=== PATIENT | female | born 1955 | race Caucasian/White ===

== ENCOUNTER 2016-12-29 14:08 | Inpatient (IN) | payer OTHER ==
[~2016-12-29] VITALS: Ht 167.6 cm; Wt 76.0 kg
[~2016-12-29 14:08] MED LIST: ANTIVERT12.5 MG; CLONAZEPAM0.5 MG; CYMBALTA20 M1; KEFLEX500 MG PO; KEPPRA500 MG PO; LAC PO; LISINOPRIL2.5 MG; MICROZIDE12.5 MG PO; NORCO1 TA2; PRAVACHOL20 MG; PRILOSEC20 MG; SOMA350 MG PO; SYNTHROID0.025 MG PO; TRAMADOL HCL50 MG; TRAZODONE50 M1; TRAZODONE50 M1 PO
[2016-12-29 15:15] LABS: PLATELET COUNT 341 x10^3mcL (130-400); RED CELL DISTRIBUTION WIDTH 13.4 % (11.5-14.5)
[2016-12-29 15:28] LABS: CALCIUM 8.9 mg/dL (8.5-10.1); CARBON DIOXIDE 23.2 mmol/L (21-32); CHLORIDE SERUM 108 mmol/L (98-107); CREATININE SERUM 1.2 mg/dL (0.6-1.0); GFR1 49 mL/min; GLUCOSE SERUM 152 mg/dL (74-106); POTASSIUM SERUM 3.4 mmol/L (3.5-5.1); SODIUM SERUM 143 mmol/L (136-145)
[2016-12-29 15:31] LABS: ALBUMIN 3.7 g/dL (3.4-5.0); ALKALINE PHOSPHATASE 85 U/L (46-116); ALT/SGPT 21 U/L (14-59); AST/SGOT 18 U/L (15-37); BILIRUBIN TOTAL 0.2 mg/dL (0.20-1.00); CHOLESTEROL 201 mg/dL (<200); TOTAL PROTEIN, SERUM 7.3 g/dL (6.4-8.2)
[2016-12-29] MEDS ORDERED: TOPAMAX50 M1 PO (16:06)
[2016-12-29] MEDS ORDERED: NOR5 PO (16:06)
[2016-12-29] MEDS ORDERED: SEROQUEL50 M1 PO (16:06)
[2016-12-29] MEDS ORDERED: GABAPENTIN100 M2 PO (16:06)
[2016-12-29 19:10] LABS: CHOLESTEROL/HDL RATIO 4.9
[2016-12-29 19:19] LABS: FREE T4 1.1 ng/dL (0.76-1.46); FREE THYROXINE INDEX 3.1 ug/dL (1.4-4.5); T4(THYROXINE) 9.6 ug/dL (4.7-13.3)
[2016-12-29 19:22] LABS: T3 TOTAL 1.12 ng/mL
[2016-12-29 19:51] VITALS: BP 97/59
[2016-12-29] MEDS ORDERED: SYNTHROID0.1 MG PO (21:02)
[2016-12-29] MEDS ORDERED: CYMBALTA60 M1 PO (21:02)
[2016-12-29] MEDS ORDERED: CELEXA20 MG PO (21:03)
[2016-12-29 21:55] VITALS: BP 131/62
[2016-12-30 06:28] LABS: BASOPHIL % 0.6 % (0-2); PLATELET COUNT 276 x10^3mcL (130-400); RED CELL DISTRIBUTION WIDTH 13.8 % (11.5-14.5)
[2016-12-30 06:29] LABS: CREATININE SERUM 1.2 mg/dL (0.6-1.0); PHOSPHOROUS 4.3 mg/dL (2.5-4.9); POTASSIUM SERUM 3.5 mmol/L (3.5-5.1)
[2016-12-30 07:51] LABS: UA SPECIFIC GRAVITY >=1.030 (1.005-1.035); microscopic required? YES; urine erythrocyte NEGATIVE (NEGATIVE)
[2016-12-30 07:59] LABS: AMPHETAMINE QUAL UR NONE DETECTED (NEG <=1000)
[2016-12-30 09:50] VITALS: BP 84/56
[2016-12-30 13:30] VITALS: BP 126/76
[2016-12-30 17:27] VITALS: BP 91/54
[2016-12-30 21:22] VITALS: BP 94/50
[2016-12-31 05:18] VITALS: BP 101/55
[2016-12-31 06:27] LABS: BASOPHIL % 0.6 % (0-2); PLATELET COUNT 314 x10^3mcL (130-400); RED CELL DISTRIBUTION WIDTH 13.5 % (11.5-14.5)
[2016-12-31 06:41] LABS: CALCIUM 8.4 mg/dL (8.5-10.1); CARBON DIOXIDE 26.4 mmol/L (21-32); CREATININE SERUM 1.4 mg/dL (0.6-1.0); POTASSIUM SERUM 4.1 mmol/L (3.5-5.1)
[2016-12-31 09:35] VITALS: BP 113/61
[2016-12-31 10:58] VITALS: Ht 167.6 cm; Wt 76.0 kg
[2016-12-31] MEDS ORDERED: THERA TABS1 TAB PO (12:36)
[2016-12-31] MEDS ORDERED: SERO100 PO (12:38)
[2016-12-31] MEDS ORDERED: LEVAQUIN750 MG PO (12:39)
[2016-12-31] MEDS ORDERED: LAC PO (12:41)
[2016-12-31] MEDS ORDERED: BACO TOP (12:57)
[2016-12-31] MEDS ORDERED: HIBICLENS118 ML TOP (12:58)
[2016-12-31 12:59] VITALS: BP 113/61
== END 2016-12-31 14:34 | disposition home or self-care (01) | DRG 177 ==
LOC: ED 14:08 → DU 18:05
PROVIDERS: Emergency Medicine; Family Medicine; ADMIT Family Medicine
DX: J69.0 Pneumonitis due to inhalation of food and vomit (principal); G93.41 Metabolic encephalopathy; N17.0 Acute kidney failure with tubular necrosis; N39.0 Urinary tract infection, site not specified; E03.9 Hypothyroidism, unspecified; K72.90 Hepatic failure, unspecified without coma; F32.9 Major depressive disorder, single episode, unspecified; I10 Essential (primary) hypertension; E87.6 Hypokalemia; G89.29 Other chronic pain; M54.2 Cervicalgia; M54.9 Dorsalgia, unspecified; R51 Headache; G40.909 Epilepsy, unspecified, not intractable, without status epilepticus; Z68.23 Body mass index [BMI] 23.0-23.9, adult; Z87.820 Personal history of traumatic brain injury; G30.9 Alzheimer's disease, unspecified; F02.80 Dementia in other diseases classified elsewhere, unspecified severity, without behavioral disturbance, psychotic disturbance, mood disturbance, and anxiety; R73.03 Prediabetes; K76.9 Liver disease, unspecified; E78.5 Hyperlipidemia, unspecified; Z82.3 Family history of stroke; E89.0 Postprocedural hypothyroidism
CPT/HCPCS: 82962; 83880; 84439; 94150; G0480; J1200; J1630; J2060; J2270; J2405; J2543; J7030; Q0092

== ENCOUNTER 2017-07-26 07:42 | Day surgery (SDC) | payer OTHER ==
[~2017-07-26] VITALS: Ht 162.6 cm; Wt 83.9 kg
[~2017-07-26 07:42] MED LIST changes: +BACO TOP; +CELEXA20 MG PO; +CYMBALTA60 M1 PO; +GABAPENTIN100 M2 PO; +HIBICLENS118 ML TOP; +LEVAQUIN750 MG PO; +NOR5 PO; +SERO100 PO; +SEROQUEL50 M1 PO; +SYNTHROID0.1 MG PO; +THERA TABS1 TAB PO; +TOPAMAX50 M1 PO
[2017-07-26 08:32] VITALS: BP 120/78
[2017-07-26 12:58] VITALS: BP 128/72
== END 2017-07-26 12:10 | disposition home or self-care (01) ==
LOC: GI 07:42 → OR 08:30 → GI 12:10
PROVIDERS: Internal Medicine
PROC: 0DBP8ZX Excision of Rectum, Via Natural or Artificial Opening Endoscopic, Diagnostic (ICD-10-PCS; principal; 2017-07-26 08:30)
DX: Z12.11 Encounter for screening for malignant neoplasm of colon (principal); K57.30 Diverticulosis of large intestine without perforation or abscess without bleeding; K62.89 Other specified diseases of anus and rectum; K64.8 Other hemorrhoids; K62.1 Rectal polyp; E66.9 Obesity, unspecified; Z68.31 Body mass index [BMI] 31.0-31.9, adult; Z86.010 Personal history of colon polyps
CPT/HCPCS: 45378; J1200; J1610; J2250; J2310; J3010; J3490

== ENCOUNTER 2017-09-26 09:11 | Emergency (ER) | payer OTHER ==
[~2017-09-26] VITALS: Ht 167.6 cm; Wt 108.9 kg
[2017-09-26 09:16] VITALS: Ht 167.6 cm; Wt 108.9 kg
[2017-09-26 11:07] LABS: BASOPHIL % 0.9 % (0-2); PLATELET COUNT 264 x10^3mcL (130-400); RED CELL DISTRIBUTION WIDTH 14.3 % (11.5-14.5)
[2017-09-26 11:14] LABS: microscopic required? NO
[2017-09-26] MEDS ORDERED: CYMBALTA30 M1 PO (11:30)
[2017-09-26] MEDS ORDERED: TRAZODONE150 M1 PO (11:30)
[2017-09-26] MEDS ORDERED: DONEPEZIL HYDRO10 M2 PO (11:30)
[2017-09-26] MEDS ORDERED: CLONAZEPAM1 MG PO (11:31)
[2017-09-26] MEDS ORDERED: SOMA350 MG PO (11:31)
[2017-09-26] MEDS ORDERED: KLOR-CON M1010 MEQ PO (11:31)
[2017-09-26] MEDS ORDERED: LASIX20 MG PO (11:31)
[2017-09-26 11:35] LABS: UA SPECIFIC GRAVITY 1.015 (1.005-1.035); urine erythrocyte NEGATIVE (NEGATIVE)
[2017-09-26 12:06] LABS: CALCIUM 9.2 mg/dL (8.5-10.1); CARBON DIOXIDE 24.8 mmol/L (21-32); CREATININE SERUM 1.6 mg/dL (0.6-1.0); POTASSIUM SERUM 3.1 mmol/L (3.5-5.1)
[2017-09-26 12:11] LABS: BILIRUBIN TOTAL 0.39 mg/dL (0.20-1.00); MAGNESIUM 1.7 mg/dL (1.8-2.4); PHOSPHOROUS 4.4 mg/dL (2.5-4.9); TOTAL PROTEIN, SERUM 7.7 g/dL (6.4-8.2)
[2017-09-26 13:25] VITALS: BP 95/50
== END 2017-09-26 13:25 | disposition home or self-care (01) ==
LOC: ED 09:11
PROVIDERS: Emergency Medicine
DX: R53.1 Weakness (principal); N28.9 Disorder of kidney and ureter, unspecified; E87.6 Hypokalemia; E83.42 Hypomagnesemia; I10 Essential (primary) hypertension
CPT/HCPCS: J7030; Q0092

== ENCOUNTER → 2018-01-15 | Outpatient (CLI) | payer OTHER ==
[~2018-01-15] MED LIST changes: +CLONAZEPAM1 MG PO; +CYMBALTA30 M1 PO; +DONEPEZIL HYDRO10 M2 PO; +KLOR-CON M1010 MEQ PO; +LASIX20 MG PO; +TRAZODONE150 M1 PO
[2018-01-15 10:51] LABS: BASOPHIL % 0.3 % (0-2); PLATELET COUNT 261 x10^3mcL (130-400); RED CELL DISTRIBUTION WIDTH 14.1 % (11.5-14.5)
[2018-01-15 11:16] LABS: BILIRUBIN TOTAL 0.4 mg/dL (0.20-1.00); CARBON DIOXIDE 25.3 mmol/L (21-32); CREATININE SERUM 1.5 mg/dL (0.6-1.0); POTASSIUM SERUM 3.9 mmol/L (3.5-5.1); TOTAL PROTEIN, SERUM 7.9 g/dL (6.4-8.2)
[2018-01-15 11:17] LABS: CHOLESTEROL/HDL RATIO 4.3
[2018-01-15 11:19] LABS: microscopic required? NO
[2018-01-15 12:25] LABS: UA SPECIFIC GRAVITY 1.025 (1.005-1.035); urine erythrocyte NEGATIVE (NEGATIVE)
== END | disposition home or self-care (01) ==
LOC: LB 10:22
PROVIDERS: Internal Medicine Nephrology
DX: N18.9 Chronic kidney disease, unspecified (principal)

== ENCOUNTER 2018-12-27 11:26 | Inpatient (IN) | payer OTHER ==
[~2018-12-27] VITALS: Ht 162.6 cm; Wt 81.8 kg
[2018-12-27 11:29] VITALS: Ht 162.6 cm; Wt 81.8 kg
[2018-12-27 12:29] LABS: PLATELET COUNT 336 x10^3mcL (130-400); RED CELL DISTRIBUTION WIDTH 11.6 % (11.5-14.5)
[2018-12-27 12:51] LABS: CALCIUM 9.6 mg/dL (8.5-10.1); CARBON DIOXIDE 22.8 mmol/L (21-32); CREATININE SERUM 1.1 mg/dL (0.6-1.0); POTASSIUM SERUM 3.8 mmol/L (3.5-5.1)
[2018-12-27 12:55] LABS: ALBUMIN 3.6 g/dL (3.4-5.0); BILIRUBIN TOTAL 0.72 mg/dL (0.20-1.00); TOTAL PROTEIN, SERUM 7.2 g/dL (6.4-8.2)
[2018-12-27 13:23] LABS: BAND NEUTROPHIL 6 % (0-10); BASOPHIL 0 % (0-2); MONOCYTE 4 % (0-7); SEGMENTED NEUTROPHILS 83 % (37-75)
[2018-12-27 13:24] LABS: rbc morphology (normal/abnorm) NORMAL (NORMAL)
[2018-12-27] MEDS ORDERED: CYMBALTA60 M1 PO (15:52)
[2018-12-27] MEDS ORDERED: LUNESTA3 MG PO (15:52)
[2018-12-27] MEDS ORDERED: TRAMADOL HCL50 MG PO (15:53)
[2018-12-27] MEDS ORDERED: NOR5 PO (15:53)
[2018-12-27] MEDS ORDERED: KEPPRA500 MG PO (15:54)
[2018-12-27] MEDS ORDERED: SYNTHROID0.1 MG PO (15:54)
[2018-12-27] MEDS ORDERED: SOMA350 MG PO (15:54)
[2018-12-27] MEDS ORDERED: TOPIRAMATE50 M1 PO (15:55)
[2018-12-27] MEDS ORDERED: CELEXA20 MG PO (15:55)
[2018-12-27] MEDS ORDERED: POTASSIUM CHLO10 MEQ PO (15:56)
[2018-12-27] MEDS ORDERED: FUROSEMIDE20 MG PO (15:56)
[2018-12-27] MEDS ORDERED: OLANZAPINE5 M2 PO (15:56)
[2018-12-27 17:05] LABS: PLATELET COUNT 232 x10^3mcL (130-400); RED CELL DISTRIBUTION WIDTH 12.8 % (11.5-14.5)
[2018-12-27 18:04] LABS: BAND NEUTROPHIL 3 % (0-10); BASOPHIL 0 % (0-2); MONOCYTE 3 % (0-7); SEGMENTED NEUTROPHILS 89 % (37-75)
[2018-12-27 18:05] LABS: rbc morphology (normal/abnorm) ABNORMAL (NORMAL)
[2018-12-27 19:04] VITALS: BP 107/60
[2018-12-27 19:15] LABS: MAGNESIUM 1.7 mg/dL (1.8-2.4)
[2018-12-27 19:17] LABS: CHOLESTEROL/HDL RATIO 4.1
[2018-12-28 02:09] LABS: microscopic required? NO
[2018-12-28 02:39] LABS: UA SPECIFIC GRAVITY <=1.005 (1.005-1.035); urine erythrocyte NEGATIVE (NEGATIVE)
[2018-12-28 04:47] VITALS: BP 102/62
[2018-12-28 06:55] LABS: CALCIUM 8.6 mg/dL (8.5-10.1); CARBON DIOXIDE 22.8 mmol/L (21-32); CHLORIDE SERUM 116 mmol/L (98-107); CREATININE SERUM 0.9 mg/dL (0.6-1.0); GFR1 > 60 mL/min; GLUCOSE SERUM 129 mg/dL (74-106); POTASSIUM SERUM 3.7 mmol/L (3.5-5.1); SODIUM SERUM 147 mmol/L (136-145)
[2018-12-28 07:28] LABS: BASOPHIL % 0.3 % (0-2); PLATELET COUNT 243 x10^3mcL (130-400); RED CELL DISTRIBUTION WIDTH 12.7 % (11.5-14.5)
[2018-12-28 08:36] VITALS: BP 104/56
[2018-12-28 12:06] VITALS: BP 95/50
[2018-12-28 12:44] VITALS: BP 95/50
== END 2018-12-28 13:17 | disposition home or self-care (01) | DRG 393 ==
LOC: ED 11:26 → DU 17:42
PROVIDERS: Emergency Medicine; Internal Medicine Gastroenterology; ADMIT General Practice
PROC: 0DC18ZZ Extirpation of Matter from Upper Esophagus, Via Natural or Artificial Opening Endoscopic (ICD-10-PCS; principal; 2018-12-27 15:15)
DX: T18.128A Food in esophagus causing other injury, initial encounter (principal); J69.0 Pneumonitis due to inhalation of food and vomit; X58.XXXA Exposure to other specified factors, initial encounter; I10 Essential (primary) hypertension; D72.829 Elevated white blood cell count, unspecified; F32.9 Major depressive disorder, single episode, unspecified; E03.9 Hypothyroidism, unspecified; R56.9 Unspecified convulsions; E78.5 Hyperlipidemia, unspecified; Y93.89 Activity, other specified; Y92.010 Kitchen of single-family (private) house as the place of occurrence of the external cause; Z87.820 Personal history of traumatic brain injury; Z90.710 Acquired absence of both cervix and uterus; Z82.3 Family history of stroke
CPT/HCPCS: 36600; 43235; 83880; J1200; J1610; J2250; J2310; J2405; J2543; J3010; J3490; J7030; J7040; Q0092